=== PATIENT | female | born 1935 | race Caucasian/White ===

== ENCOUNTER → 2016-04-18 | Outpatient (CLI) | payer OTHER ==
[2016-04-18 11:30] LABS: ALT/SGPT 23 U/L (12-78); AST/SGOT 20 U/L (15-37); BLOOD UREA NITROGEN 13 mg/dl (7-18); BUN/CREATININE RATIO 14.3 (10-20); CALCIUM 8.8 mg/dl (8.5-10.1); CARBON DIOXIDE 31 mmol/L (21-32); CHLORIDE 106 mmol/L (98-107); CREATININE 0.94 mg/dl (0.60-1.20); GLUCOSE 95 mg/dl (70-99); POTASSIUM 4.1 mmol/L (3.5-5.1); SODIUM 144 mmol/L (136-145)
[2016-04-18 11:41] LABS: ALB/GLOB RATIO 1.3 (0.9-2); ALKALINE PHOSPHATASE 29 U/L (45-117); CHOLESTEROL 193 mg/dl (0-200); CHOLESTEROL/HDL RATIO 1.8; HDL CHOLESTEROL 110 mg/dl; LDL CHOLESTEROL CALCULATED 69 mg/dl; TRIGLYCERIDES 68 mg/dl (0-150); VERY LOW DENSITY LIPOPROT CALC 14 mg/dl
== END | disposition home or self-care (01) ==
LOC: C.LABBC 09:04
PROVIDERS: ATTEND Internal Medicine Geriatric Medicine
DX: M81.0 Age-related osteoporosis without current pathological fracture (principal); E78.5 Hyperlipidemia, unspecified

== ENCOUNTER → 2017-05-19 | Outpatient (CLI) | payer OTHER ==
[2017-05-19 11:35] LABS: BASO % 0.8 %; BASO ABS # 0.03 K/uL (0-0.2); EOS % 9.5 %; EOS ABS # 0.36 K/uL (0-0.5); HEMATOCRIT 41.8 % (37-47); HEMOGLOBIN 14.4 g/dL (12.0-16.0); LYMPH % 37.3 %; LYMPH ABS # 1.41 K/uL (1.2-3.4); MEAN CELL VOLUME 89.5 fL (80-100); MEAN CORPUSCULAR HEMOGLOBIN 30.8 pg (25-34); MEAN CORPUSCULAR HGB CONC 34.4 g/dl (32-36); MEAN PLATELET VOLUME 9.6 fL (7.4-10.4); MONO % 9.3 %; MONO ABS # 0.35 K/uL (0.11-0.59); NEUT % 43.1 %; NEUT ABS # 1.63 K/uL (1.4-6.5); PLATELET COUNT 167 K/uL (130-400); RED CELL DISTRIBUTION WIDTH CV 12.9 % (11.5-14.5); RED CELL DISTRIBUTION WIDTH SD 41.9 fL (36.4-46.3); WHITE BLOOD COUNT 3.78 K/uL (4.8-10.8)
[2017-05-19 18:08] LABS: ALBUMIN 3.6 gm/dl (3.4-5.0); ALT/SGPT 19 U/L (12-78); BLOOD UREA NITROGEN 13 mg/dl (7-18); CALCIUM 8.5 mg/dl (8.5-10.1); CARBON DIOXIDE 30 mmol/L (21-32); CHOLESTEROL 174 mg/dl (0-200); CREATININE 0.93 mg/dl (0.60-1.20); GLUCOSE 95 mg/dl (70-99); SODIUM 141 mmol/L (136-145)
[2017-05-19 18:18] LABS: ALKALINE PHOSPHATASE 30 U/L (45-117); AST/SGOT 17 U/L (15-37); LDL CHOLESTEROL CALCULATED 64 mg/dl; TOTAL PROTEIN 6.8 gm/dl (6.4-8.2)
== END | disposition home or self-care (01) ==
LOC: C.LABPBG 10:20
PROVIDERS: ATTEND Internal Medicine
DX: M81.0 Age-related osteoporosis without current pathological fracture (principal)

== ENCOUNTER → 2017-06-23 | Outpatient (CLI) | payer OTHER ==
[2017-06-24 05:49] LABS: HEMOGLOBIN A1C 5.5 % (4.5-5.6)
== END | disposition home or self-care (01) ==
LOC: C.LABPBG 12:01
PROVIDERS: ATTEND Internal Medicine
DX: R20.2 Paresthesia of skin (principal); G62.9 Polyneuropathy, unspecified; R26.9 Unspecified abnormalities of gait and mobility